=== PATIENT | male | born 1990 | race Asian ===

== ENCOUNTER 2021-11-26 21:54 | Emergency (ER) | payer BC ==
[~2021-11-26] VITALS: Ht 175.3 cm; Wt 70.3 kg
[2021-11-26 23:10] VITALS: BP 131/90; TEMP 98.4
== END 2021-11-26 23:10 | disposition home or self-care (01) ==
LOC: ED 21:54
DX: Z20.2 Contact with and (suspected) exposure to infections with a predominantly sexual mode of transmission (principal)
CPT/HCPCS: 80307; 81000; 87490; 87590; 96372; 99283; J0696